=== PATIENT | female | born 1965 | race Caucasian/White ===

== ENCOUNTER 2016-07-07 15:11 | Emergency (ER) | payer BC ==
[~2016-07-07 15:11] MED LIST: ASPIRIN EC81 MG PO
== END 2016-07-07 18:00 | disposition home or self-care (01) ==
LOC: ER1 15:11
DX: S93.492A Sprain of other ligament of left ankle, initial encounter (principal); E78.5 Hyperlipidemia, unspecified; F17.200 Nicotine dependence, unspecified, uncomplicated; Z88.2 Allergy status to sulfonamides; W17.89XA Other fall from one level to another, initial encounter
CPT/HCPCS: 73590; 73610; 73630; 99283

== ENCOUNTER 2020-04-27 10:59 | Emergency (ER) | payer OTHER ==
[~2020-04-27 10:59] MED LIST changes: +ALLEGRA ALLERGY60 MG PO; +AMBIEN10 MG PO; +ARNUITY ELLIP100 MCG INH; +AZELASTINE137 MCG/0.; +BENTYL 10MG CAP10 MG PO; +BREO ELLIPTA 21 EACH INH; +CARAFATE1 GM PO; +CLEOCIN HCL300 MG PO; +CRESTOR20 MG PO; +DICYCLOMINE HCL10 MG PO; +ELAVIL 10 MG TA10 MG PO; +EUCRISA TOP; +FEXOFENADINE HC60 MG PO; +FLONASE 0.05% N16 GM; +GABAPENTIN300 MG PO; +HYDROCODON-ACE1 EAC4 PO; +HYOSCYAMINE0.125 MG PO; +IBUPROFEN600 MG PO; +ISENTRESS400 MG PO; +LIVALO4 MG PO; +LORTAB 5-325 M1 EACH PO; +MEDROL4 MG PO; +NEURONTIN 300300 MG PO; +PANTOPRAZOLE SO40 MG PO; +PROTONIX40 MG PO; +PROVENTIL HFA6.7 GM PO; +TOLTERODINE TART4 MG PO; +TRIAMCINOLONE A15 GM TP; +TRUVADA 200 MG1 EACH PO; +ULTRAM50 MG PO; +URIBEL CAPSULE1 EACH PO; +VENTOLIN HFA 66.7 GM INH; +VITAMIN D1000 UNI1 PO; +ZANTAC150 MG PO; +ZOFRAN ODT 4 MG4 MG SL; +ZOLOFT50 MG PO; +ZOLPIDEM TARTRA10 MG PO
[2020-04-27] MEDS ORDERED: AUGMENTIN 875-1 EACH PO (16:07)
[2020-04-27] MEDS ORDERED: HYDROCODON-ACE1 EAC2 PO (16:11)
== END 2020-04-27 16:23 | disposition home or self-care (01) ==
LOC: ER1 10:59
DX: H66.91 Otitis media, unspecified, right ear (principal); H92.02 Otalgia, left ear; I10 Essential (primary) hypertension; J45.909 Unspecified asthma, uncomplicated; Z88.2 Allergy status to sulfonamides; Z91.013 Allergy to seafood
CPT/HCPCS: 70450; 99283

== ENCOUNTER → 2020-11-16 | Day surgery (SDC) | payer OTHER ==
[~2020-11-16] MED LIST changes: +AUGMENTIN 875-1 EACH PO; +CETIRIZINE HCL10 MG PO; +DICLOFENAC SOD TOP; -GABAPENTIN300 MG PO; +GABAPENTIN400 MG PO; +HYDROCODON-ACE1 EAC2 PO; +HYDROCODONE-AC1 EACH PO
== END | disposition home or self-care (01) ==
LOC: OR 07:15
DX: N30.10 Interstitial cystitis (chronic) without hematuria (principal); J45.909 Unspecified asthma, uncomplicated; I10 Essential (primary) hypertension; E78.5 Hyperlipidemia, unspecified; F41.8 Other specified anxiety disorders; K21.9 Gastro-esophageal reflux disease without esophagitis; M19.90 Unspecified osteoarthritis, unspecified site; G56.03 Carpal tunnel syndrome, bilateral upper limbs; G47.00 Insomnia, unspecified; K58.9 Irritable bowel syndrome, unspecified; G62.9 Polyneuropathy, unspecified; M26.609 Unspecified temporomandibular joint disorder, unspecified side; E53.8 Deficiency of other specified B group vitamins; E55.9 Vitamin D deficiency, unspecified; F17.200 Nicotine dependence, unspecified, uncomplicated; Z79.899 Other long term (current) drug therapy; Z88.2 Allergy status to sulfonamides; Z20.822 Contact with and (suspected) exposure to COVID-19; Z90.49 Acquired absence of other specified parts of digestive tract; Z90.710 Acquired absence of both cervix and uterus; Z98.51 Tubal ligation status; Z87.440 Personal history of urinary (tract) infections
CPT/HCPCS: J1100; J1956; J2001; J2270; J2405; J2704; J3010; J7030; J7040; J7120

== ENCOUNTER → 2020-12-26 | Outpatient (CLI) | payer OTHER | LOC: MAMO 14:04 | DX: N64.4 Mastodynia (principal) | CPT/HCPCS: 76641-RT; 77066; G0279 ==

== ENCOUNTER → 2021-01-22 | Day surgery (SDC) | payer OTHER | END | disposition home or self-care (01) | LOC: OR 06:12 | DX: K63.5 Polyp of colon (principal); K57.30 Diverticulosis of large intestine without perforation or abscess without bleeding; R10.2 Pelvic and perineal pain; N30.10 Interstitial cystitis (chronic) without hematuria; M54.16 Radiculopathy, lumbar region; M54.40 Lumbago with sciatica, unspecified side; I10 Essential (primary) hypertension; F41.9 Anxiety disorder, unspecified; M19.90 Unspecified osteoarthritis, unspecified site; J45.909 Unspecified asthma, uncomplicated; F41.8 Other specified anxiety disorders; H69.80 Other specified disorders of Eustachian tube, unspecified ear; K21.9 Gastro-esophageal reflux disease without esophagitis; E78.5 Hyperlipidemia, unspecified; G47.00 Insomnia, unspecified; M26.609 Unspecified temporomandibular joint disorder, unspecified side; E53.8 Deficiency of other specified B group vitamins; E55.9 Vitamin D deficiency, unspecified; F17.210 Nicotine dependence, cigarettes, uncomplicated; Z79.899 Other long term (current) drug therapy; Z88.2 Allergy status to sulfonamides; Z20.822 Contact with and (suspected) exposure to COVID-19; Z86.010 Personal history of colon polyps; Z87.440 Personal history of urinary (tract) infections | CPT/HCPCS: J2704; J7120 ==

== ENCOUNTER 2021-09-27 08:28 | Emergency (ER) | payer OTHER ==
[2021-09-27 09:11] LABS: HEMOGLOBIN 14.2 gm/dl (12.3-15.3); RED BLOOD COUNT 4.37 M/UL (4.00-5.10); WHITE BLOOD COUNT 4.8 K/UL (4.5-11.0)
[2021-09-27 09:28] LABS: BUN/CREATININE RATIO 15 (0-10)
== END 2021-09-27 10:10 | disposition left against medical advice (07) ==
LOC: ER1 08:28
PROVIDERS: Emergency Medicine
DX: R10.9 Unspecified abdominal pain (principal); G89.29 Other chronic pain; Z88.2 Allergy status to sulfonamides
CPT/HCPCS: 80053; 81001; 83690; 85025; 86140; 96374; 99283; J2405